=== PATIENT | female | born 1940 | race African-American/Black ===

== ENCOUNTER 2017-07-24 20:41 | Emergency (ER) | payer OTHER ==
[~2017-07-24] VITALS: Ht 170.2 cm; Wt 108.9 kg
--- NOTE | ~2017-07-24 | EKG ---
PATIENT: ARTEMIO BELLAMY UNIT #: [id number] Ventricular Rate: 92 BPM Atrial Rate: 92 BPM P-R Interval: 180 ms QRS Duration: 76 ms Q-T Interval: 338 ms QTC Calculation(Bezet): 417 ms P [place]: 38 degrees Calculated R [place]: 9 degrees Calculated T [place]: 19 degrees Diagnosis Line: Poor data quality, interpretation may be Diagnosis Line: adversely affected Diagnosis Line: Normal sinus rhythm Diagnosis Line: Cannot rule out Inferior infarct , age Diagnosis Line: undetermined Diagnosis Line: Abnormal ECG Diagnosis Line: No previous ECGs available Diagnosis Line: Confirmed by AYDIN MORA MD ([id number]) on Diagnosis Line: 07/26/2017 9:42:49 AM INTERPRETING MD: MORGAN SHARP
--- NOTE | ~2017-07-24 | CR72 ---
[facility] A Service of [facility] RADIOLOGY TEXT RESULTS PATIENT: ARTEMIO BELLAMY LOCATION: [facility] : 40 UNIT #: [id number] AGE: [address]: Ryan Hernandez MD SEX: F ORDER DR: [id number] [facility] [address], [place] [address] [id number] E MR#: [id number] Acc #: [id number] NAME: ARTEMIO BELLAMY. : 1940 SEX: F STUDY DATE/TIME: 07/24/2017 22:20 UNIT: [facility] ROOM: STUDY DESCRIPTION: CR Chest Single View Portable Attending Physician: Ryan Hernandez M.D. Ordering Physician: Ryan Hernandez M.D. Primary Care Physician: No Primary Care Physician MEDICAL IMAGING REPORT This report is preliminary unless electronic signature is present EXAM Single view of the chest dated 07/24/17. COMPARISON Chest, 2 views, dated 12/30/06. HISTORY Chest pain since 1800 hours today. History of asthma and high blood pressure. FINDINGS Single view of the chest was obtained. Poor inspiratory film does not demonstrate acute cardiopulmonary disease. Lungs, heart and mediastinum are within normal limits. 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 Dictated by... Barbi Schmidt M.D. THIS IS AN ELECTRONICALLY VERIFIED REPORT Barbi Schmidt M.D. at 07/25/2017 5:06 PM CPR/bd TD: 07/25/2017 07:43 JOB #: [id number] MEDICAL IMAGING REPORT [facility] A Service of [facility] RADIOLOGY TEXT RESULTS PATIENT: ARTEMIO BELLAMY LOCATION: [facility] : 40 UNIT #: [id number] AGE: [address]: Ryan Hernandez MD SEX: F ORDER DR: Page 1 of 1 COPY
--- NOTE | ~2017-07-24 | CT2 ---
[facility] A Service of [facility] RADIOLOGY TEXT RESULTS PATIENT: ARTEMIO BELLAMY LOCATION: [facility] : 40 UNIT #: [id number] AGE: [address]: Ryan Hernandez MD SEX: F ORDER DR: [id number] [facility] [address] [place], [place] [address] [id number] E MR#: [id number] Acc #: [id number] NAME: ARTEMIO BELLAMY : 1940 SEX: F STUDY DATE/TIME: 07/25/2017 0:02 UNIT: [facility] ROOM: STUDY DESCRIPTION: CT Abd and Pelv W Cont Attending Physician: Ryan Hernandez M.D. Ordering Physician: Ryan Hernandez M.D. Primary Care Physician: Primary Care Physician No MEDICAL IMAGING REPORT This report is preliminary unless electronic signature is present EXAM CT abdomen and pelvis with contrast, 07/25/2017 HISTORY 77-year-old female in the ED complaining of 3-day history of left side abdomen pain. TECHNIQUE CT examination of the abdomen and pelvis with oral and IV contrast. This CT exam was performed with one or more of the following radiation dose reduction techniques: automatic exposure control, adjustment of mA and/or kV according to patient size, and iterative reconstruction. FINDINGS ABDOMEN: Cholecystectomy. No bile duct dilatation. Tiny benign cyst left lobe of the liver, unchanged since 07/27/2010. Liver, pancreas and spleen are otherwise normal in size and appearance. Both kidneys are negative, with the exception of 2 right lower renal cysts. No evidence of urinary obstruction. Normal caliber abdominal aorta. Small bowel and colon are normal in caliber and appearance. The appendix is normal. PELVIS: Hysterectomy. Ovaries, urinary bladder and rectum are within normal limits. No inguinal hernia. Limited lung base images show no active disease in the lower chest. IMPRESSION 1. No acute abnormality within the abdomen or pelvis. 2. Cholecystectomy and hysterectomy. 3. Small benign cysts in the right lower kidney and left hepatic lobe, [facility] A Service of [facility] RADIOLOGY TEXT RESULTS PATIENT: ARTEMIO BELLAMY [id number] 40 UNIT #: [id number] AGE: [address]: Ryan Hernandez MD SEX: F ORDER DR: unchanged since 07/27/2010. Normal appendix. Dictated by... Mohit Bull M.D. THIS IS AN ELECTRONICALLY VERIFIED REPORT Mohit Bull M.D. at 07/25/2017 10:29 PM JAYLYN/rochelle TD: 07/25/2017 08:50 JOB #: [id number] MEDICAL IMAGING REPORT Page 1 of 1 COPY
[~2017-07-24 20:41] MED LIST: ADVAIR 2501 DISK W/D PO; ALBUTEROL17 GM INH; ASPIRIN81 M2 PO; CALAN SR PO; CALTRATE 600+D PO; CERTAGEN PO; COD LIVER OIL1 EACH PO; CYPROHEPTADINE H4 MG PO; DESYREL50 MG PO; DOXEPIN PO; FIBER SUPPLEMENT PO; FISH OIL 1,0001 CAP PO; FISH OIL 1,2001 EAC1 PO; FOSINOPRIL-HCT1 EACH PO; GARLIC OIL1000 MG PO; LISINOPRIL PO; LISINOPRIL20 MG PO; MELOXICAM15 MG PO; MULTI VITAMIN1 EACH PO; PROAIR HFA8.5 GM IN; PROZAC PO; STOOL SOFTENER100 M1 PO; VITAMIN B 6 PO; VITAMIN C500 M1 PO; [UNRECOGNIZED DRUG - OTHER]; [UNRECOGNIZED DRUG - OTHER] PO
[2017-07-24 22:52] LABS: BASOPHIL% 0.4 % (0-2.5); DIFF IND NO; EOSINOPHIL% 0.1 % (0.0-7.0); HEMATOCRIT 37.3 % (35.0-45.0); HEMOGLOBIN 12.1 gm/dL (12.0-16.0); LYMPHOCYTE# 1.2 X10e3 (1.0-3.5); LYMPHOCYTE% 14.5 % (17.0-45.0); MEAN CORPUSCULAR HEMOGLOBIN 28.8 PG (28-34); MEAN CORPUSCULAR HGB CONC 32.3 g/dL (30-36); MONOCYTE# 0.3 X10e3 (0-1.0); MONOCYTE% 3.4 % (3.0-12.0); NEUTROPHIL# 6.9 X10e3 (1.5-7.1); NEUTROPHIL% 81.6 % (40-75); PLATELET COUNT 349 X10e3 (140-420); RED BLOOD COUNT 4.19 X10e (3.90-5.30); RED CELL DISTRIBUTION WIDTH 12.7 % (11.0-15.5); WHITE BLOOD COUNT 8.5 X10e3 (4.0-10.5)
[2017-07-24 23:01] LABS: POC - CKMB <1.0 ng/mL (0.0-7.9); POC - TROPONIN <0.05 ng/mL (<=0.05)
[2017-07-24 23:12] LABS: ALBUMIN SERUM 4.1 g/dL (3.5-5.0); BILIRUBIN, DIRECT 0.1 mg/dL (0.0-0.2); BILIRUBIN,INDIRECT 0.4 mg/dL (0.0-0.9); BILIRUBIN,TOTAL 0.5 mg/dL (0.2-2.0); CALCIUM SERUM 8.8 mg/dL (8.4-10.2); CREATININE SERUM 0.8 mg/dL (0.6-1.4); GLOM FILT RATE Estimated 82.5 mL/min (>60); POTASSIUM 4.8 mmol/L (3.5-5.1); PROTEIN TOTAL SERUM 6.7 g/dL (6.0-8.3)
[2017-07-24 23:21] LABS: INR 0.9; PARTIAL THROMBOPLASTIN TIME 24.7 SECONDS (23.5-31.3)
[2017-07-25 00:20] LABS: URINE SOURCE CLEAN CATCH
[2017-07-25 00:25] LABS: URINE APPEARANCE CLEAR; URINE BILIRUBIN NEG (NEG); URINE BLOOD NEG (NEG); URINE COLOR YELLOW; URINE GLUCOSE NEG (NEG); URINE KETONE NEG (NEG); URINE LEUKOCYTE ESTERASE NEG (NEG); URINE NITRATE NEG (NEG); URINE PH 6.5 (5-8); URINE PROTEIN NEG (NEG); URINE SPECIFIC GRAVITY 1.006 (1.003-1.035); URINE UROBILINOGEN 0.2 MG/DL (NEG)
[2017-07-25 00:33] LABS: CULTURE INDICATED? NO
[2017-07-25 01:34] LABS: POC - CKMB <1.0 ng/mL (0.0-7.9); POC - TROPONIN <0.05 ng/mL (<=0.05)
== END 2017-07-25 01:56 | disposition home or self-care (01) ==
LOC: CED 20:41
PROVIDERS: Emergency Medicine
DX: R07.9 Chest pain, unspecified (principal); R10.9 Unspecified abdominal pain; I10 Essential (primary) hypertension; J45.909 Unspecified asthma, uncomplicated; F41.9 Anxiety disorder, unspecified
CPT/HCPCS: 36415; 71010; 74177; 80048; 80076; 81003; 82553; 84443; 84484; 85025; 85610; 85730; 93005; 99285; Q9967